=== PATIENT | female | born 1990 | race African-American/Black ===

== ENCOUNTER 2016-06-20 11:47 | Emergency (ER) | payer OTHER ==
[~2016-06-20] VITALS: Ht 175.3 cm; Wt 63.2 kg
[~2016-06-20 11:47] MED LIST: AUGMENTIN875 MG PO; BUSPAR15 MG PO; FIORICET,ESG1 TABLET PO; FLEXERIL5 MG PO; IMITREX100 MG PO; LAMICTAL200 MG PO; PERCOCET 5/31 TABLET PO; PREDNISONE20 MG PO; PROMETHAZINE HC25 M1 PO; REGLAN10 MG PO; SINGULAIR10 MG PO; SKELAXIN800 MG PO; ZYRTEC10 M2 PO
[2016-06-20 12:27] LABS: ADD MIUA? YES; BILIRUBIN NEGATIVE; BLOOD NEGATIVE; COLOR YELLOW ((YELLOW)); GLUCOSE (STRIP) NEGATIVE; KETONES NEGATIVE; LEUKOCYTES TRACE; NITRITE NEGATIVE; PROTEIN (STRIP) TRACE; SPECIFIC GRAVITY 1.028 (1.000-1.030); UROBILINOGEN 0.2 MG/DL (0.2-1.0)
[2016-06-20 12:57] LABS: EPITHELIAL CELLS 1+; MUCUS NONE SEEN; RED BLOOD CELLS RARE /HPF (0-5); WHITE BLOOD CELLS RARE /HPF (0-5)
[2016-06-20 12:58] LABS: BACTERIA 1+; CASTS NONE SEEN /LPF; CRYSTALS NONE SEEN; UCUL ADDED? NO
[2016-06-20 13:00] LABS: HEMATOCRIT 35.9 % (36.0-46.0); MCH 27.8 PG (29.0-34.0); MCHC 32.9 G/DL (30.0-36.0); MCV 84.5 FL (83-99); MEAN PLAT.VOLUME 11.8 uM^3 (9.5-12.4); PLATELET COUNT 215 K/uL (156-360); RBC DIS.WIDTH-CV 13.2 % (11.8-14.6); RBC DIS.WIDTH-SD 39.5 % (39-53); RED BLOOD COUNT 4.25 M/uL (3.80-5.20); WHITE BLOOD COUNT 6.3 K/uL (4.1-10.2)
[2016-06-20 13:09] LABS: CHLORIDE 106 mEq/L (99-109); POTASSIUM 3.6 mEq/L (3.7-5.4); SODIUM 140 mEq/L (136-147)
[2016-06-20 13:11] LABS: GLUCOSE 89 mg/dL (70-99)
[2016-06-20 13:12] LABS: ANION GAP 10 MEQ/L (2-14)
[2016-06-20 13:13] LABS: TOTAL BILIRUBIN 0.5 mg/dL (0.0-1.0)
[2016-06-20 13:15] LABS: ALKALINE PHOSPHATASE 65 IU/L (3-129); GFR ESTIMATE (CALCULATED) > 59 mL/min/
[2016-06-20 13:16] LABS: UREA NITROGEN (BUN) 12 mg/dL (9-23)
[2016-06-20 13:24] LABS: QUANTITATIVE HCG < 4.0 MIU/ML
[2016-06-20] MEDS ORDERED: BENTYL10 MG PO (13:54)
[2016-06-20 14:20] VITALS: BP 131/81
[2016-06-21] MEDS ORDERED: FLAGYL500 MG PO (11:47)
[2016-06-21] MEDS ORDERED: ZOFRAN ODT8 MG PO (11:47)
[2016-06-21] MEDS ORDERED: DILAUDID2 MG PO (11:47)
== END 2016-06-20 14:18 | disposition home or self-care (01) ==
LOC: EME 11:47
DX: R11.2 Nausea with vomiting, unspecified (principal); R19.7 Diarrhea, unspecified; R10.9 Unspecified abdominal pain; F17.200 Nicotine dependence, unspecified, uncomplicated; Z91.040 Latex allergy status; Z88.6 Allergy status to analgesic agent
CPT/HCPCS: 80048; 80053; 81003; 84702; 85027; 87493; 99281; 99284

== ENCOUNTER 2016-06-21 09:03 | Emergency (ER) | payer OTHER ==
[~2016-06-21] VITALS: Ht 175.3 cm; Wt 62.5 kg
[~2016-06-21 09:03] MED LIST changes: +BENTYL10 MG PO
[2016-06-21 09:45] LABS: EOSINOPHIL (%) 4.4 % (0-5); EOSINOPHIL COUNT 0.3 K/uL (0-0.3); HEMATOCRIT 36.9 % (36.0-46.0); IMMATURE GRANULOCYTE (%) 0.3 % (0.0-0.7); IMMATURE GRANULOCYTE COUNT 0.2 K/uL; LYMPHOCYTE COUNT 0.9 K/uL (1.0-2.8); MCH 28.1 PG (29.0-34.0); MCHC 33.3 G/DL (30.0-36.0); MCV 84.2 FL (83-99); MEAN PLAT.VOLUME 11.3 uM^3 (9.5-12.4); MONOCYTE (%) 7.8 % (3-12); MONOCYTE COUNT 0.6 K/uL (0-0.8); NEUTROPHIL (%) 75.2 % (45-76); NEUTROPHIL COUNT 5.5 K/uL (1.8-6.4); PLATELET COUNT 215 K/uL (156-360); RBC DIS.WIDTH-CV 13.1 % (11.8-14.6); RBC DIS.WIDTH-SD 39.8 % (39-53); RED BLOOD COUNT 4.38 M/uL (3.80-5.20); WHITE BLOOD COUNT 7.3 K/uL (4.1-10.2)
[2016-06-21 09:54] LABS: CHLORIDE 105 mEq/L (99-109); POTASSIUM 3.7 mEq/L (3.7-5.4); SODIUM 139 mEq/L (136-147)
[2016-06-21 09:56] LABS: GLUCOSE 93 mg/dL (70-99)
[2016-06-21 09:57] LABS: ANION GAP 11 MEQ/L (2-14)
[2016-06-21 09:58] LABS: TOTAL BILIRUBIN 0.6 mg/dL (0.0-1.0)
[2016-06-21 09:59] LABS: ALKALINE PHOSPHATASE 74 IU/L (3-129)
[2016-06-21 10:00] LABS: GFR ESTIMATE (CALCULATED) > 59 mL/min/
[2016-06-21 10:01] LABS: UREA NITROGEN (BUN) 10 mg/dL (9-23)
[2016-06-21 10:08] LABS: QUANTITATIVE HCG < 4.0 MIU/ML
[2016-06-21 11:03] LABS: INTERNAL CONTROL VALID? YES
[2016-06-21 11:35] LABS: C DIFF TOXIN NEGATIVE (NEGATIVE)
[2016-06-21 11:36] LABS: PROBE CHECK PASS; SPECIMEN PROCESSING CONTROL PASS
[2016-06-21] MEDS ORDERED: ZOFRAN ODT8 MG PO (11:47)
[2016-06-21] MEDS ORDERED: DILAUDID2 MG PO (11:47)
[2016-06-21] MEDS ORDERED: FLAGYL500 MG PO (11:47)
[2016-06-21 12:27] VITALS: BP 94/58
== END 2016-06-21 13:01 | disposition home or self-care (01) ==
LOC: EME 09:03
PROVIDERS: Emergency Medicine
DX: K51.00 Ulcerative (chronic) pancolitis without complications (principal); R11.2 Nausea with vomiting, unspecified; F17.200 Nicotine dependence, unspecified, uncomplicated; Z71.6 Tobacco abuse counseling
CPT/HCPCS: 74177; 80053; 83630; 84702; 85025; 87493; 87506; 99281; 99285; J1170; J2405; J7030; S0030

== ENCOUNTER 2016-08-23 15:57 | Emergency (ER) | payer OTHER ==
[~2016-08-23] VITALS: Ht 175.3 cm; Wt 66.0 kg
[~2016-08-23 15:57] MED LIST changes: +DILAUDID2 MG PO; +FLAGYL500 MG PO; +ZOFRAN ODT8 MG PO
[2016-08-23 16:41] LABS: HEMATOCRIT 40.9 % (36.0-46.0); MCH 27.7 PG (29.0-34.0); MCHC 31.5 G/DL (30.0-36.0); MCV 87.8 FL (83-99); RBC DIS.WIDTH-SD 41.8 % (39-53); RED BLOOD COUNT 4.66 M/uL (3.80-5.20); WHITE BLOOD COUNT 7.2 K/uL (4.1-10.2)
[2016-08-23 16:50] LABS: CHLORIDE 107 mEq/L (99-109); POTASSIUM 3.9 mEq/L (3.7-5.4); SODIUM 140 mEq/L (136-147)
[2016-08-23 16:53] LABS: GLUCOSE 134 mg/dL (70-99)
[2016-08-23 16:54] LABS: ANION GAP 9 MEQ/L (2-14); TOTAL BILIRUBIN 0.2 mg/dL (0.0-1.0)
[2016-08-23 16:56] LABS: ALKALINE PHOSPHATASE 77 IU/L (3-129); GFR ESTIMATE (CALCULATED) > 59 mL/min/
[2016-08-23 16:57] LABS: UREA NITROGEN (BUN) 11 mg/dL (9-23)
[2016-08-23 17:00] LABS: LIPASE 43 U/L (1.0-51.0)
[2016-08-23 17:06] LABS: QUANTITATIVE HCG < 4.0 MIU/ML
[2016-08-23 17:10] LABS: ADD MIUA? YES; BILIRUBIN NEGATIVE; BLOOD SMALL; COLOR YELLOW ((YELLOW)); GLUCOSE (STRIP) NEGATIVE; KETONES NEGATIVE; LEUKOCYTES TRACE; NITRITE NEGATIVE; PROTEIN (STRIP) NEGATIVE; SPECIFIC GRAVITY 1.023 (1.000-1.030); UROBILINOGEN 0.2 MG/DL (0.2-1.0)
[2016-08-23 17:28] LABS: BACTERIA 2+ /HPF; CASTS NONE SEEN /LPF; CRYSTALS NONE SEEN; EPITHELIAL CELLS RARE /HPF; MUCUS TRACE /LPF; RED BLOOD CELLS 0-5 /HPF (0-5); UCUL ADDED? NO; WHITE BLOOD CELLS 0-5 /HPF (0-5)
[2016-08-23 17:31] LABS: HEMATOLOGY COMMENT 1 SN; MEAN PLAT.VOLUME 11.1 uM^3 (9.5-12.4); PLAT.SUFFICIENCY ADEQUATE; PLATELET COUNT 201 K/uL (156-360)
[2016-08-23] MEDS ORDERED: ZOFRAN ODT4 MG PO (20:43)
[2016-08-23] MEDS ORDERED: BENTYL10 MG PO (20:43)
[2016-08-23] MEDS ORDERED: CIPRO500 MG PO (20:53)
[2016-08-23 20:57] VITALS: BP 111/67
== END 2016-08-23 20:58 | disposition home or self-care (01) ==
LOC: EME 15:57
DX: N39.0 Urinary tract infection, site not specified (principal); R11.2 Nausea with vomiting, unspecified; R19.7 Diarrhea, unspecified; Z88.6 Allergy status to analgesic agent; Z91.040 Latex allergy status; F17.200 Nicotine dependence, unspecified, uncomplicated
CPT/HCPCS: 74177; 80053; 81003; 83690; 84702; 85027; 87086; 87493; 87506; 99281; 99285; J1885; J3010; J7030

== ENCOUNTER 2017-05-25 21:05 | Emergency (ER) | payer BC ==
[~2017-05-25] VITALS: Ht 175.3 cm; Wt 64.8 kg
[~2017-05-25 21:05] MED LIST changes: +CIPRO500 MG PO; +ZOFRAN ODT4 MG PO
[2017-05-25] MEDS ORDERED: ULTRAM50 MG PO (22:59)
[2017-05-25] MEDS ORDERED: AUGMENTIN875 MG PO (22:59)
[2017-05-25 23:44] VITALS: BP 118/66
== END 2017-05-25 23:45 | disposition home or self-care (01) ==
LOC: EME 21:05 → EXP 21:05
PROVIDERS: Physician Assistant
DX: K08.89 Other specified disorders of teeth and supporting structures (principal); J32.9 Chronic sinusitis, unspecified; Z88.5 Allergy status to narcotic agent; Z88.8 Allergy status to other drugs, medicaments and biological substances
CPT/HCPCS: 87502; 99281; 99284